=== PATIENT | female | born 1975 ===

== ENCOUNTER → 2018-12-25 20:46 | Outpatient (ROUT) | payer OTHER, SELFPAY ==
[2018-12-25 21:15] LABS: Add Manual Diff / Slide Review NO; Basophils Absolute Auto 100 /uL (0-100); Basophils Percent Auto 1.2 % (0-2); Eosinophils Absolute Auto 200 /uL (0-450); Eosinophils Percent Auto 2.8 % (2-4); Hemoglobin 14.1 g/dL (12.0-16.0); Lymphocytes Absolute Auto 1600 /uL (1100-4500); Lymphocytes Percent Auto 23.7 % (25-40); Mean Corpuscular HGB Conc 33.4 % (30-36); Mean Corpuscular Hemoglobin 30.4 PG (26-34); Mean Corpuscular Volume 90.9 fL (80-100); Monocytes Absolute Auto 600 /uL (0-900); Monocytes Percent Auto 8.6 % (3-14); Neutrophils Absolute Auto 4300 /uL (1500-7000); Neutrophils Percent Auto 63.7 % (50-75); Platelet Count 361 X10^3/uL (150-400); Red Blood Cell Count 4.63 X10^6/uL (4.0-5.2); Red Cell Distribution Width 15.2 % (11.6-14.8); White Blood Cell Count 6.8 X10^3/uL (4.5-11.0)
[2018-12-25 21:55] LABS: Ferritin 16.7 ng/mL (6.27-137)
[2018-12-25 21:59] LABS: Rubella Antibody IgG > 350.0 IU/mL (>15)
[2018-12-27 14:53] LABS: Rubeola Measles IgG < 25.00 AU/mL (< 25.00)
== END ==
PROVIDERS: Visit Provider Physician Assistant
DX: Z01.84 Encounter for antibody response examination (principal); D50.9 Iron deficiency anemia, unspecified
CPT/HCPCS: 36415; 82728; 85025; 86735; 86762; 86765